=== PATIENT | male | born 1970 | race Asian ===

== ENCOUNTER 2020-08-11 07:15 | Outpatient (CLI) | payer SELFPAY ==
[2020-08-12 02:23] LABS: SARS-CoV-2 MS2 Positive; SARS-CoV-2 N Gene Negative; SARS-CoV-2 S Gene Negative; SARS-CoV-2 by NAA Not Detected (NotDetected); SARS-CoV-2 orf1ab Negative
== END 2020-08-11 07:16 | disposition home or self-care (01) ==
LOC: LABBT 07:15
PROVIDERS: ATTEND Orthopaedic Surgery
DX: Z01.812 Encounter for preprocedural laboratory examination (principal); S93.324A Dislocation of tarsometatarsal joint of right foot, initial encounter; Z20.822 Contact with and (suspected) exposure to COVID-19
CPT/HCPCS: 87635; U0003

== ENCOUNTER 2020-08-16 10:21 | Day surgery (SDC) | payer OTHER ==
[2020-08-12 13:53] VITALS: BMI 26.6
[2020-08-16] MEDS ORDERED: Lidocaine 1% PF 5 ML VIAL ONE (11:13)
[2020-08-16] MEDS ORDERED: Ondansetron PF 4 MG/2 ML Vial ONE (11:13)
[2020-08-16] MEDS ORDERED: PROPOFOL 200 MG/20 ML VIAL ONE (11:13)
[2020-08-16] MEDS ORDERED: Ropivacaine 0.5% HCl/PF (150 MG/30 ML VIAL) ONE (11:13)
[2020-08-16] MEDS ORDERED: Dexamethasone 20 MG/5 ML VIAL ONE (11:13)
[2020-08-16] MEDS ORDERED: Midazolam HCl 2 mg/2 ml Vial ONE (11:14)
[2020-08-16] MEDS ORDERED: Fentanyl 100 MCG/2 ML VIAL ONE ×3 (11:14→14:34)
[2020-08-16] MEDS ORDERED: Fentanyl 100 MCG/2 ML VIAL SLOW IVP PRN (14:54)
[2020-08-16] MEDS ORDERED: Ondansetron PF 4 MG/2 ML Vial IVP PRN (15:00)
[2020-08-16] MEDS ORDERED: Promethazine HCl 25 MG/ML VIAL IM PRN (15:00)
[2020-08-16] MEDS ORDERED: Zolpidem Tartrate 5 MG TAB PO PRN (15:00)
[2020-08-16] MEDS ORDERED: Ropivacaine 0.2% 550 ML 550 ML NERVE BLCK SCH (15:00)
[2020-08-16] MEDS ORDERED: Ketorolac Tromethamine 30 MG/ML VIAL IVP PRN (15:00)
[2020-08-16] MEDS ORDERED: traMADol HCl 50 MG TAB PO PRN ×2 (15:00)
[2020-08-16] MEDS ORDERED: HYDROcodone/Acetaminophen 10/325 mg Tablet PO PRN ×2 (15:00)
[2020-08-16] MEDS ORDERED: Ketorolac Tromethamine 30 MG/ML VIAL ONE (15:07)
[2020-08-16] MEDS ORDERED: HYDROcodone/Acetaminophen 10/325 mg Tablet ONE (15:59)
--- NOTE | 2020-08-16 16:03 | RAD ---
Right foot 2 views intraoperative fluoroscopy HISTORY: Lisfranc injury. FINDINGS: Intraoperative fluoroscopy was provided for internal fixation as performed by Dr. Wilson . Spot fluoroscopic images show multiple screws transfixing the first through third tarsometatarsal joints and a long wire transfixing the fifth tarsometatarsal joint. Alignment is anatomic.
--- NOTE | 2020-08-16 17:32 | OP ---
DATE OF PROCEDURE: 08/16/2020 PROCEDURE PERFORMED: Open reduction and internal fixation of right midfoot fracture dislocation with Lisfranc dislocation. PREOPERATIVE DIAGNOSIS: Right midfoot fracture dislocation including the Lisfranc ligament. POSTOPERATIVE DIAGNOSIS: Right midfoot fracture dislocation including the Lisfranc ligament. COMPLICATIONS: None. ESTIMATED BLOOD LOSS: Minimal. IMPLANTS: 4 Synthes 3.5 mm screws were utilized. INDICATIONS: Mr. Mauro is a 50-year-old male who was injured, moving furniture. He fractured his mid foot and dislocated his Lisfranc joint and the 3rd metatarsal base. He has been indicated for open reduction and internal fixation to restore anatomic alignment and promote healing. Risks have been reviewed in detail. He has elected to proceed with the operation. Risks to include chronic pain, posttraumatic changes, arthritis, nerve or vascular injury, and others. DESCRIPTION OF PROCEDURE: Mr. Mauro was identified in the preoperative holding area. His correct extremity was marked. He was carried to the operating room. He was positioned supine. General anesthesia was induced. A multidisciplinary time-out was performed. The right lower extremity was prepped and draped in sterile fashion. We began the procedure with a dorsal approach to the foot. We dissected down through subcutaneous tissues to the fascia overlying the bony structures. We protected the neurovascular structures. We then identified the 1st metatarsal, 2nd metatarsal, and 3rd metatarsal. These were all displaced laterally. The 3rd metatarsal was dislocated. At this point, we reduced the 1st metatarsal to the middle cuneiform. This was held with a K-wire. We then passed a 3.5-mm screw across the joint stabilizing this articulation. Next, we reduced the 2nd metatarsal to the middle cuneiform. A screw was placed from the medial foot across the Lisfranc joint into the 2nd metatarsal base. A 2nd screw was placed from the 2nd metatarsal base to the middle cuneiform. Finally, we reduced the 3rd metatarsal and passed a screw across the 3rd metatarsal articulation. Next, we placed a K-wire in the 5th metatarsal, stabilized the lateral column of the foot. We took final x-ray images in all planes. We thoroughly irrigated with copious lavage. We were happy with hardware and reduction. We closed in layers. A sterile dressing and a splint were placed. The patient was taken to the recovery room in good condition. Job ID: [id number]
== END 2020-08-16 16:40 | disposition home or self-care (01) ==
LOC: SDC 10:21
PROVIDERS: ATTEND Orthopaedic Surgery
PROC: 3E0T3BZ Introduction of Anesthetic Agent into Peripheral Nerves and Plexi, Percutaneous Approach (ICD-10-PCS; principal; 2020-08-16)
PROC: 0QSN04Z Reposition Right Metatarsal with Internal Fixation Device, Open Approach (ICD-10-PCS; principal; 2020-08-16)
DX: S93.324A Dislocation of tarsometatarsal joint of right foot, initial encounter (principal); G89.18 Other acute postprocedural pain; W01.0XXA Fall on same level from slipping, tripping and stumbling without subsequent striking against object, initial encounter
CPT/HCPCS: 76000; A4306; C1713; J0690; J1885; J2250; J2795; J3010